=== PATIENT | female | born 1990 | race Hispanic/Latino ===

== ENCOUNTER 2018-05-25 21:30 | Emergency (ER) | payer OTHER ==
[2018-05-25] MEDS ORDERED: IBUPROFEN 600 MG TABLET ONE (21:54)
[2018-05-25] MEDS ORDERED: AMOXICILLIN 500 MG CAPSULE PO ONE (21:54)
== END 2018-05-25 22:04 | disposition home or self-care (01) ==
LOC: EDH 21:30
DX: S01.511A Laceration without foreign body of lip, initial encounter (principal); F41.9 Anxiety disorder, unspecified; F31.9 Bipolar disorder, unspecified; Z72.0 Tobacco use; Z98.51 Tubal ligation status; X58.XXXA Exposure to other specified factors, initial encounter; Y93.89 Activity, other specified; Y92.098 Other place in other non-institutional residence as the place of occurrence of the external cause; Y99.8 Other external cause status

== ENCOUNTER 2018-06-30 10:34 | Emergency (ER) | payer OTHER ==
[2018-06-30 11:17] LABS: RAPID GROUP A STREP NEGATIVE (NEGATIVE)
== END 2018-06-30 11:35 | disposition home or self-care (01) ==
LOC: EDH 10:34
DX: J06.9 Acute upper respiratory infection, unspecified (principal); R50.81 Fever presenting with conditions classified elsewhere; F41.9 Anxiety disorder, unspecified; F31.9 Bipolar disorder, unspecified; Z98.51 Tubal ligation status; Z72.0 Tobacco use
CPT/HCPCS: 87804; 87880

== ENCOUNTER 2018-07-25 09:16 | Emergency (ER) | payer OTHER ==
[2018-07-25] MEDS ORDERED: METHYLPREDNISOLONE SOD SUCC 125MG/2ML VIAL ONE (09:28)
[2018-07-25] MEDS ORDERED: IPRATROPIUM/ALBUTEROL SULFATE 3 ML SOLUTION IH ONE (09:44)
[2018-07-25 09:59] LABS: RAPID GROUP A STREP NEGATIVE (NEGATIVE)
== END 2018-07-25 10:37 | disposition home or self-care (01) ==
LOC: EDH 09:16
DX: J20.9 Acute bronchitis, unspecified (principal); J18.9 Pneumonia, unspecified organism; F41.9 Anxiety disorder, unspecified; F31.9 Bipolar disorder, unspecified; Z98.51 Tubal ligation status; Z87.891 Personal history of nicotine dependence
CPT/HCPCS: 71046; 87804 ×2; 87880; 94640; 96372; 99284; J2930

== ENCOUNTER 2018-11-09 17:46 | Emergency (ER) | payer SELFPAY ==
[2018-11-09] MEDS ORDERED: LIDOCAINE 5% TOPICAL PATCH TP ONE (19:13)
[2018-11-09] MEDS ORDERED: ACETAMINOPHEN EXTRA STRENGTH 500 MG TABLET ONE (19:13)
== END 2018-11-09 20:07 | disposition home or self-care (01) ==
LOC: EDH 17:46
DX: S30.0XXA Contusion of lower back and pelvis, initial encounter (principal); F41.9 Anxiety disorder, unspecified; F31.9 Bipolar disorder, unspecified; Z72.0 Tobacco use; W01.0XXA Fall on same level from slipping, tripping and stumbling without subsequent striking against object, initial encounter; Y93.89 Activity, other specified; Y92.89 Other specified places as the place of occurrence of the external cause; Y99.8 Other external cause status

== ENCOUNTER 2019-12-05 20:50 | Emergency (ER) | payer OTHER ==
[2019-12-05] MEDS ORDERED: ONDANSETRON ODT 4 MG TAB ONE (21:30)
[2019-12-05] MEDS ORDERED: LIDOCAINE HCL 1% 20 ML VIAL ONE (21:33)
== END 2019-12-05 23:07 | disposition home or self-care (01) ==
LOC: EDH 20:50
DX: S06.0X0A Concussion without loss of consciousness, initial encounter (principal); S01.01XA Laceration without foreign body of scalp, initial encounter; F41.9 Anxiety disorder, unspecified; F31.9 Bipolar disorder, unspecified; W01.0XXA Fall on same level from slipping, tripping and stumbling without subsequent striking against object, initial encounter; Y93.89 Activity, other specified; Y92.34 Swimming pool (public) as the place of occurrence of the external cause; Y99.8 Other external cause status
CPT/HCPCS: 12032; 70450

== ENCOUNTER 2019-12-15 12:28 | Emergency (ER) | payer OTHER | END 2019-12-15 13:12 | disposition home or self-care (01) | LOC: EDH 12:28 | DX: S01.91XD Laceration without foreign body of unspecified part of head, subsequent encounter (principal); F41.9 Anxiety disorder, unspecified; F32.9 Major depressive disorder, single episode, unspecified; Z72.0 Tobacco use; X58.XXXD Exposure to other specified factors, subsequent encounter | CPT/HCPCS: 99281 ==

== ENCOUNTER 2022-10-29 14:15 | Emergency (ER) | payer OTHER ==
[~2022-10-29] VITALS: Ht 149.9 cm; Wt 66.7 kg
[2022-10-29 14:16] VITALS: BP 102/66
== END 2022-10-29 16:17 | disposition left against medical advice (07) ==
LOC: EDH 14:15
DX: F41.9 Anxiety disorder, unspecified (principal); Z53.21 Procedure and treatment not carried out due to patient leaving prior to being seen by health care provider
CPT/HCPCS: 99281

== ENCOUNTER 2023-07-08 19:27 | Emergency (ER) | payer BC ==
[~2023-07-08] VITALS: Ht 149.9 cm; Wt 68.0 kg
[~2023-07-08 19:27] MED LIST: VALA100031 PO
[2023-07-08 21:35] VITALS: BP 132/76; PULSE 72; RESP 16; O2SAT 99
[2023-07-08 21:36] LABS: APPEARANCE,URINE CLEAR (CLEAR); BILIRUBIN,URINE NEGATIVE (NEGATIVE); COLOR,URINE LIGHT-YELLOW (YELLOW); GLUCOSE, URINE (UA) NEGATIVE (NEGATIVE); KETONES,URINE NEGATIVE (NEGATIVE); LEUKOCYTE ESTERASE ,URINE NEGATIVE Leu/uL (NEGATIVE); NITRATE,URINE NEGATIVE (NEGATIVE); OCCULT BLOOD,URINE NEGATIVE (NEGATIVE); PROTEIN,URINE 10 mg/dL (NEGATIVE)
[2023-07-08 21:39] LABS: ADD UA MICROSCOPIC YES
[2023-07-08 21:40] LABS: MUCUS,URINE FEW LPF (None Seen); RBC,URINE 0-1 /HPF (0-1); SQUAMOUS EPITHELIAL CELL,UR FEW /HPF (0-2)
[2023-07-08 21:52] LABS: HCG,QUALITATIVE URINE NEGATIVE (NEGATIVE)
[2023-07-08 22:47] LABS: RAPID PLASMA REAGIN REACTIVE (NONREACTIVE); RAPID PLASMA REAGIN TITER REACTIVE >1:16 (NONREACTIVE)
[2023-07-08] MEDS: ONDANSETRON ODT 4MG TAB SL ONE (22:59)
[2023-07-08] MEDS: AZITHROMYCIN 250 MG TABLET PO SCH (23:42)
[2023-07-08] MEDS: AZITHROMYCIN 250 MG TABLET PO ONE (23:44)
== END 2023-07-08 23:58 | disposition home or self-care (01) ==
LOC: EDH 19:27
DX: A64 Unspecified sexually transmitted disease (principal); F41.9 Anxiety disorder, unspecified
CPT/HCPCS: 36415; 81001; 81025; 86592; 86780; 87486; 87797